=== PATIENT | female | born 1935 | race Caucasian/White ===

== ENCOUNTER 2017-01-18 13:18 | Inpatient (IN) | payer MEDICARE, OTHER ==
[~2017-01-18 13:18] MED LIST: ACIPHEX20 M1 PO; ADULT ASPIRIN81 MG PO; ALLOPURINOL100 M1 PO; AMLODIPINE BESYL5 MG PO; APRESOLINE25 MG/TAB PO; ASPIR 8181 MG PO; ASPIRIN EC81 MG PO; BABY ASPIRIN81 MG; BENADRYL25 M3 PO; BIOTIN2500 MC1 PO; BIOTIN300 MCG PO; BIOTIN5 M1 PO; BIOTIN500 MCG; BYSTOLIC10 M1 PO; BYSTOLIC20 MG PO; BYSTOLIC5 MG PO; CALCIUM CITRAT1 EA25 PO; CALCIUM CITRAT1 EAC7 PO; CATAPRES0.1 M1 PO; CITALOPRAM; CLONAZEPAM0.5 M1 PO; CLONAZEPAM0.5 M2 PO; CLONIDINE HCL0.2 MG PO; CO Q-10150 MG PO; COLACE100 MG PO; CRESTOR20 MG; CRESTOR20 MG PO; CRESTOR40 MG PO; DEMADEX20 MG; DETROL LA4 MG; DIOVAN320 MG; DIOVAN320 MG PO; ESTRACE42.5 G1 VG; ESTRADIOL0.5 MG; ESTRADIOL0.5 MG PO; FOLIC ACID0.4 M1 PO; FOLIC ACID0.4 MG PO; GABAPENTIN100 MG PO; Gabapentin; HYDRALAZINE HCL10 MG PO; HYDROCODON-ACE1 EA17 PO; IRON325 ( 65 PO; ISOSORBIDE; ISOSORBIDE MONO60 M1 PO; ISOSORBIDE MONO60 M3 PO; LASIX20 MG; LASIX40 MG PO; LASIX80 M1 PO; LASIX80 MG PO; LEXAPRO10 M2 PO; LEXAPRO10 MG PO; LINZESS145 MC1 PO; LIVALO1 M1 PO; LIVALO4 M1 PO; LOTEMAX5 GM OP; MYSOLINE250 MG; MYSOLINE50 MG; NEURONTIN100 M1 PO; NEXIUM; NEXIUM20 MG PO; NEXIUM40 MG; NEXIUM40 MG PO; NITROGLYCERIN; NITROGLYCERIN0.4 M2 SL; NITROGLYCERIN0.4 MG SL; NORCO 5-325 TA1 EACH PO; NORCO 5/325 TAB1 TAB PO; NYSTATIN15 G1 TP; Nucynta PO; ONDANSETRON ODT4 M1 PO; PLAVIX75 MG; PLAVIX75 MG PO; PRALUENT P75 MG/1 ML SC; PRIMIDONE250 M1 PO; PRIMIDONE250 MG PO; PROLIA60 MG/1 M1 SC; PROTONIX40 M2 PO; PROTONIX40 MG PO; PROZAC20 MG; PROZAC20 MG PO; PROZAC40 MG; QUININE SULFAT325 MG; RANEXA1000 M1 PO; RANEXA1000 MG PO; RANEXA500 MG PO; RESTASIS0.4 ML/EA OP; RESTASIS1 EAC1 BOTH EYES; SPIRONOLACTONE25 MG; SYNTHROID50 MC1 PO; TEKTURNA; TEKTURNA PO; TEKTURNA150 MG; TEKTURNA300 MG PO; TENEX1 MG PO; TOPROL XL50 MG; TRAMADOL HCL50 M2 PO; TYLENOL EXTRA500 M1 PO; TYLENOL325 M2 PO; VITAMIN D1000 UNI1 PO; VITAMIN D2 PO; VITAMIN D250000 UNI1 PO; VITAMIN D50000 UNIT PO; VOLTAREN100 G1 TP; XARELTO PO; ZETIA10 M1 PO; ZETIA10 MG; ZETIA10 MG PO
[2017-01-18] MEDS ORDERED: NEURONTIN300 M1 PO (14:22)
[2017-01-18] MEDS ORDERED: NORCO 5-325 TA1 EACH PO (14:23)
[2017-01-18] MEDS ORDERED: CLONAZEPAM0.5 M2 PO (14:23)
[2017-01-18] MEDS ORDERED: CATAPRES0.1 M1 PO ×2 (14:24→14:54)
[2017-01-18] MEDS ORDERED: RESTASIS0.4 ML/EA OP (14:25)
[2017-01-18] MEDS ORDERED: TYLENOL EXTRA500 M1 PO (14:25)
[2017-01-18] MEDS ORDERED: GLYCERIN1 EAC1 PR (14:26)
[2017-01-18] MEDS ORDERED: BYSTOLIC10 M1 PO (14:26)
[2017-01-18] MEDS ORDERED: FOLIC ACID1 M1 PO (14:27)
[2017-01-18] MEDS ORDERED: SPIRONOLACTONE25 M2 PO (14:27)
[2017-01-18] MEDS ORDERED: PANTOPRAZOLE SO40 M3 PO (14:30)
[2017-01-18] MEDS ORDERED: LIDODERM1 EACH TD (14:36)
[2017-01-18] MEDS ORDERED: POLYETHYLENE G255 G1 PO (14:37)
[2017-01-18] MEDS ORDERED: PROCRIT10000 UNIT SC (14:39)
[2017-01-18] MEDS ORDERED: NORVASC10 M2 PO (14:40)
[2017-01-18] MEDS ORDERED: BYSTOLIC20 M1 PO (14:41)
[2017-01-18] MEDS ORDERED: IPRATROPIU0.2 MG/1 M INH (14:51)
[2017-01-18] MEDS ORDERED: ALBUTEROL2.5 MG/0.1 INH (14:52)
[2017-01-18] MEDS ORDERED: PRALUENT P75 MG/1 ML SC (14:55)
[2017-01-18] MEDS ORDERED: CALCIUM500 M4 PO (14:56)
[2017-01-18] MEDS ORDERED: SENOKOT-S TABL1 EACH PO (14:59)
[2017-01-18 18:22] LABS: ABG CO2 ARTERIAL 20 mmol/L (21-27); ARTERIAL BLD GAS O2 SATURATION 97 % (95-98); ARTERIAL BLOOD GAS PCO2 31 mmHg (32-45); ARTERIAL PO2 82 mmHg (70-100); BICARBONATE 19 mmol/L (21-28); BLOOD GAS BASE EXCESS -5 mM/L (-/+3); PH 7.41 Units (7.35-7.45)
[2017-01-18 19:14] LABS: BASO % 0.3 % (0-2); EOS % 2.5 % (0-7); EOSINOPHIL ABSOLUTE COUNT 0.2 tho/cmm (0.0-0.7); HCT-HEMATOCRIT 28.7 % (34.0-49.0); HGB-HEMOGLOBIN 9.8 gm/dl (12.0-15.5); IMMATURE GRANULOCYTES ABSOLUTE 0.02 tho/cmm (0-0.03); IMMATURE GRANULOCYTES PERCENT 0.2 % (0-0.3); LYMPH % 10.1 % (20-45); LYMPH ABSOLUTE COUNT 0.9 tho/cmm (0.8-4.5); MCH (MEAN CORPUSCULAR HGB) 31.4 pg (28.0-32.0); MCHC MEAN CORPUSCULAR HGB CONC 34.1 % (32.0-36.0); MEAN PLATELET VOLUME 9.8 cmc (9.4-12.4); MONO % 8.9 % (0-12); MONOCYTE ABSOLUTE COUNT 0.8 tho/cmm (0.0-1.2); NEUTROPHIL ABSOLUTE COUNT 6.9 tho/cmm (1.6-8.0); NEUTROPHIL-AUTOMATED 6.9 tho/cmm (1.6-8.0); PLATELET COUNT 238 tho/cmm (150-450); RED BLOOD COUNT 3.12 mil/cmm (4.00-5.20); RED CELL DISTRIBUTION WIDTH 18.6 % (12.4-16.4); WHITE BLOOD COUNT 8.9 tho/cmm (4.0-10.0)
[2017-01-18 19:30] LABS: IRON 36 ug/dl (37-170); IRON BINDING CAPACITY 264 ug/dl (250-450)
[2017-01-18 19:32] LABS: ALB/GLOB RATIO 0.7 (0.8-2.0); ALBUMIN 3.2 g/dl (3.5-5.0); ALKALINE PHOSPHATASE 90 U/L (33-138); ALT/SGPT 63 U/L (12-78); ANION GAP 17 mmol/L (0-20); AST/SGOT 53 U/L (10-40); BILIRUBIN,TOTAL 0.7 mg/dl (0-1.5); BLOOD UREA NITROGEN 45 mg/dl (6-24); CALCIUM 9.1 mg/dl (8.5-10.5); CARBON DIOXIDE-VENOUS 20 mmol/L (22-32); CHLORIDE 94 mmol/l (96-110); CREATININE 1.79 mg/dl (0.50-1.10); GLUCOSE 108 mg/dL (70-110); MAGNESIUM 2.3 mg/dl (1.8-2.6); PHOSPHOROUS 4.1 mg/dl (2.5-4.9); POTASSIUM 4.9 mmol/L (3.7-5.1); SODIUM 126 mmol/L (135-145); eGFR VALUE FOR BLACK 30 mL/Min
[2017-01-19] LABS: URINE BILIRUBIN NEGATIVE (NEG); URINE BLOOD NEGATIVE (NEG); URINE GLUCOSE (UA) NEGATIVE (NEG); URINE KETONE NEGATIVE (NEG); URINE LEUKOCYTE ESTERASE NEGATIVE (NEG); URINE NITRITE NEGATIVE (NEG); URINE PROTEIN SMALL (NEG); URINE SPECIFIC GRAVITY 1.005 (1.003-1.030)
[2017-01-19 00:04] LABS: URINE APPEARANCE CLEAR; URINE COLOR PALE YELLOW
[2017-01-19 06:26] LABS: BASO % 0.4 % (0-2); EOS % 2.3 % (0-7); EOSINOPHIL ABSOLUTE COUNT 0.2 tho/cmm (0.0-0.7); HCT-HEMATOCRIT 27.5 % (34.0-49.0); HGB-HEMOGLOBIN 9.3 gm/dl (12.0-15.5); IMMATURE GRANULOCYTES ABSOLUTE 0.02 tho/cmm (0-0.03); IMMATURE GRANULOCYTES PERCENT 0.3 % (0-0.3); LYMPH % 11.7 % (20-45); LYMPH ABSOLUTE COUNT 0.9 tho/cmm (0.8-4.5); MCHC MEAN CORPUSCULAR HGB CONC 33.8 % (32.0-36.0); MCV (MEAN CELL VOLUME) 91.7 fl (82.0-96.0); MEAN PLATELET VOLUME 9.8 cmc (9.4-12.4); MONO % 13.5 % (0-12); MONOCYTE ABSOLUTE COUNT 1.1 tho/cmm (0.0-1.2); NEUTROPHIL ABSOLUTE COUNT 5.7 tho/cmm (1.6-8.0); NEUTROPHIL-AUTOMATED 5.7 tho/cmm (1.6-8.0); NEUTROPHILS % 71.8 % (40-80); PLATELET COUNT 241 tho/cmm (150-450); RED CELL DISTRIBUTION WIDTH 18.5 % (12.4-16.4)
[2017-01-19 06:41] LABS: ANION GAP 15 mmol/L (0-20); BLOOD UREA NITROGEN 40 mg/dl (6-24); CALCIUM 8.9 mg/dl (8.5-10.5); CARBON DIOXIDE-VENOUS 21 mmol/L (22-32); CHLORIDE 96 mmol/l (96-110); CREATININE 1.72 mg/dl (0.50-1.10); GLUCOSE 113 mg/dL (70-110); MAGNESIUM 2.3 mg/dl (1.8-2.6); PHOSPHOROUS 3.7 mg/dl (2.5-4.9); POTASSIUM 4.8 mmol/L (3.7-5.1); SODIUM 127 mmol/L (135-145); eGFR VALUE FOR BLACK 32 mL/Min
[2017-01-19 14:09] LABS: INR 1.2 INR (0.9-1.1); PROTHROMBIN TIME 14.6 SECONDS (9.0-13.6)
--- NOTE | 2017-01-19 14:48 | NUR ---
VN ROUNDING-TRIED ROUNDING ON PATIENT AND PHYSICIAN IN ROOM TALKING WITH PATIENT AND FAMILY AT BEDSIDE. CONTINUED WITH CHART REVIEW
[2017-01-19 15:21] LABS: BODY FLUID APPEARANCE BLOODY (CLEAR); BODY FLUID COLOR RED (COLORLESS); BODY FLUID RBC COUNT 1190000 cmm (0); BODY FLUID TYPE PLEURAL; BODY FLUID WBC COUNT 486 cmm
[2017-01-19 15:22] LABS: BODY FLUID VOLUME 2000 ml
[2017-01-19 16:03] LABS: BODY FLUID EOSINOPHILS 4 %; BODY FLUID LYMPHOCYTES 12 %; BODY FLUID MACROPHAGES 53 %; BODY FLUID NEUTROPHILS 31 %
[2017-01-20 04:50] LABS: BASO % 0.3 % (0-2); EOS % 2.5 % (0-7); EOSINOPHIL ABSOLUTE COUNT 0.2 tho/cmm (0.0-0.7); HGB-HEMOGLOBIN 8.8 gm/dl (12.0-15.5); IMMATURE GRANULOCYTES ABSOLUTE 0.02 tho/cmm (0-0.03); IMMATURE GRANULOCYTES PERCENT 0.3 % (0-0.3); LYMPH % 7.6 % (20-45); LYMPH ABSOLUTE COUNT 0.6 tho/cmm (0.8-4.5); MCH (MEAN CORPUSCULAR HGB) 30.7 pg (28.0-32.0); MCHC MEAN CORPUSCULAR HGB CONC 33.8 % (32.0-36.0); MCV (MEAN CELL VOLUME) 90.6 fl (82.0-96.0); MEAN PLATELET VOLUME 9.4 cmc (9.4-12.4); MONO % 7.7 % (0-12); MONOCYTE ABSOLUTE COUNT 0.6 tho/cmm (0.0-1.2); NEUTROPHIL ABSOLUTE COUNT 6.5 tho/cmm (1.6-8.0); NEUTROPHIL-AUTOMATED 6.5 tho/cmm (1.6-8.0); NEUTROPHILS % 81.6 % (40-80); PLATELET COUNT 231 tho/cmm (150-450); RED BLOOD COUNT 2.87 mil/cmm (4.00-5.20); RED CELL DISTRIBUTION WIDTH 18.4 % (12.4-16.4); WHITE BLOOD COUNT 7.9 tho/cmm (4.0-10.0)
[2017-01-20 05:04] LABS: ALB/GLOB RATIO 0.7 (0.8-2.0); ALBUMIN 2.6 g/dl (3.5-5.0); ALKALINE PHOSPHATASE 84 U/L (33-138); ALT/SGPT 50 U/L (12-78); ANION GAP 16 mmol/L (0-20); AST/SGOT 42 U/L (10-40); BILIRUBIN,TOTAL 0.6 mg/dl (0-1.5); BLOOD UREA NITROGEN 37 mg/dl (6-24); CALCIUM 7.8 mg/dl (8.5-10.5); CARBON DIOXIDE-VENOUS 21 mmol/L (22-32); CHLORIDE 96 mmol/l (96-110); CREATININE 1.56 mg/dl (0.50-1.10); GLUCOSE 114 mg/dL (70-110); PHOSPHOROUS 3.2 mg/dl (2.5-4.9); POTASSIUM 4.2 mmol/L (3.7-5.1); SODIUM 129 mmol/L (135-145); eGFR VALUE FOR BLACK 35 mL/Min
[2017-01-20 12:26] LABS: CREATINE PHOSPHOKINASE (CPK) 29 U/L (21-215)
[2017-01-20 17:57] LABS: CKMB 0.6 ng/ml (<3.6); CREATINE PHOSPHOKINASE (CPK) 21 U/L (21-215)
--- NOTE | 2017-01-20 20:59 | NUR ---
VN ROUNDING-DID NOT ROUND ON PATIENT DUE TO CONFUSION. CHART REVIEWED.
[2017-01-21 00:16] LABS: CKMB 0.7 ng/ml (<3.6); CREATINE PHOSPHOKINASE (CPK) 19 U/L (21-215)
[2017-01-21 04:37] LABS: MCV (MEAN CELL VOLUME) 91.4 fl (82.0-96.0); RED CELL DISTRIBUTION WIDTH 18.5 % (12.4-16.4)
[2017-01-21 04:45] LABS: HCT-HEMATOCRIT 23.4 % (34.0-49.0)
[2017-01-21 04:50] LABS: ANION GAP 14 mmol/L (0-20); BLOOD UREA NITROGEN 31 mg/dl (6-24); CALCIUM 7.5 mg/dl (8.5-10.5); CARBON DIOXIDE-VENOUS 22 mmol/L (22-32); CHLORIDE 97 mmol/l (96-110); CREATININE 1.53 mg/dl (0.50-1.10); GLUCOSE 118 mg/dL (70-110); POTASSIUM 3.8 mmol/L (3.7-5.1); SODIUM 129 mmol/L (135-145); eGFR VALUE FOR BLACK 36 mL/Min
--- NOTE | 2017-01-21 19:24 | NUR ---
VIRTUAL CARE NOTE: ASSESSMENT DEFERRED. PT. SLEEPING.
[2017-01-22 06:24] LABS: ANION GAP 14 mmol/L (0-20); BLOOD UREA NITROGEN 27 mg/dl (6-24); CALCIUM 7.9 mg/dl (8.5-10.5); CARBON DIOXIDE-VENOUS 22 mmol/L (22-32); CHLORIDE 99 mmol/l (96-110); CREATININE 1.47 mg/dl (0.50-1.10); GLUCOSE 116 mg/dL (70-110); POTASSIUM 3.9 mmol/L (3.7-5.1); SODIUM 131 mmol/L (135-145); eGFR VALUE FOR BLACK 38 mL/Min
--- NOTE | 2017-01-22 21:37 | NUR ---
Virtual care note: assessment deferred. pt. sleeping.
[2017-01-23 05:52] LABS: BASO % 0.3 % (0-2); EOS % 1.6 % (0-7); EOSINOPHIL ABSOLUTE COUNT 0.1 tho/cmm (0.0-0.7); HCT-HEMATOCRIT 24.5 % (34.0-49.0); HGB-HEMOGLOBIN 8.1 gm/dl (12.0-15.5); IMMATURE GRANULOCYTES ABSOLUTE 0.04 tho/cmm (0-0.03); IMMATURE GRANULOCYTES PERCENT 0.5 % (0-0.3); LYMPH % 8.1 % (20-45); LYMPH ABSOLUTE COUNT 0.6 tho/cmm (0.8-4.5); MCH (MEAN CORPUSCULAR HGB) 30.6 pg (28.0-32.0); MCHC MEAN CORPUSCULAR HGB CONC 33.1 % (32.0-36.0); MCV (MEAN CELL VOLUME) 92.5 fl (82.0-96.0); MEAN PLATELET VOLUME 9.3 cmc (9.4-12.4); MONO % 11.7 % (0-12); MONOCYTE ABSOLUTE COUNT 0.9 tho/cmm (0.0-1.2); NEUTROPHIL ABSOLUTE COUNT 6.2 tho/cmm (1.6-8.0); NEUTROPHIL-AUTOMATED 6.2 tho/cmm (1.6-8.0); NEUTROPHILS % 77.8 % (40-80); PLATELET COUNT 209 tho/cmm (150-450); RED BLOOD COUNT 2.65 mil/cmm (4.00-5.20); WHITE BLOOD COUNT 7.9 tho/cmm (4.0-10.0)
[2017-01-23 06:09] LABS: ALBUMIN 2.5 g/dl (3.5-5.0); ANION GAP 15 mmol/L (0-20); BLOOD UREA NITROGEN 27 mg/dl (6-24); CALCIUM 7.8 mg/dl (8.5-10.5); CARBON DIOXIDE-VENOUS 21 mmol/L (22-32); CHLORIDE 100 mmol/l (96-110); GLUCOSE 120 mg/dL (70-110); SODIUM 132 mmol/L (135-145); eGFR VALUE FOR BLACK 37 mL/Min
[2017-01-24 12:45] LABS: BASO % 0.2 % (0-2); EOS % 0.5 % (0-7); EOSINOPHIL ABSOLUTE COUNT 0.1 tho/cmm (0.0-0.7); HCT-HEMATOCRIT 25.6 % (34.0-49.0); HGB-HEMOGLOBIN 8.7 gm/dl (12.0-15.5); IMMATURE GRANULOCYTES ABSOLUTE 0.06 tho/cmm (0-0.03); IMMATURE GRANULOCYTES PERCENT 0.6 % (0-0.3); LYMPH ABSOLUTE COUNT 0.8 tho/cmm (0.8-4.5); MCH (MEAN CORPUSCULAR HGB) 31.6 pg (28.0-32.0); MCV (MEAN CELL VOLUME) 93.1 fl (82.0-96.0); MEAN PLATELET VOLUME 9.8 cmc (9.4-12.4); MONOCYTE ABSOLUTE COUNT 1.5 tho/cmm (0.0-1.2); NEUTROPHILS % 76.7 % (40-80); PLATELET COUNT 297 tho/cmm (150-450); RED BLOOD COUNT 2.75 mil/cmm (4.00-5.20); RED CELL DISTRIBUTION WIDTH 19.3 % (12.4-16.4); WHITE BLOOD COUNT 10.5 tho/cmm (4.0-10.0)
[2017-01-24 13:01] LABS: ANION GAP 15 mmol/L (0-20); BLOOD UREA NITROGEN 29 mg/dl (6-24); CALCIUM 7.8 mg/dl (8.5-10.5); CARBON DIOXIDE-VENOUS 20 mmol/L (22-32); CHLORIDE 100 mmol/l (96-110); CREATININE 1.61 mg/dl (0.50-1.10); GLUCOSE 110 mg/dL (70-110); POTASSIUM 4.2 mmol/L (3.7-5.1); SODIUM 131 mmol/L (135-145); eGFR VALUE FOR BLACK 34 mL/Min
--- NOTE | 2017-01-24 21:57 | NUR ---
VN ROUNDING NOTE-DEFERRED PATIENT SLEEPING.
[2017-01-25 05:18] LABS: HCT-HEMATOCRIT 27.4 % (34.0-49.0); HGB-HEMOGLOBIN 9.3 gm/dl (12.0-15.5); MCH (MEAN CORPUSCULAR HGB) 30.5 pg (28.0-32.0); MCHC MEAN CORPUSCULAR HGB CONC 33.9 % (32.0-36.0); MCV (MEAN CELL VOLUME) 89.8 fl (82.0-96.0); NEUTROPHIL-AUTOMATED 6.6 tho/cmm (1.6-8.0); PLATELET COUNT 225 tho/cmm (150-450); RED BLOOD COUNT 3.05 mil/cmm (4.00-5.20); RED CELL DISTRIBUTION WIDTH 19.5 % (12.4-16.4); WHITE BLOOD COUNT 8.7 tho/cmm (4.0-10.0)
[2017-01-25 05:19] LABS: BASO % 0.1 % (0-2); EOS % 1.1 % (0-7); EOSINOPHIL ABSOLUTE COUNT 0.1 tho/cmm (0.0-0.7); IMMATURE GRANULOCYTES ABSOLUTE 0.08 tho/cmm (0-0.03); IMMATURE GRANULOCYTES PERCENT 0.9 % (0-0.3); LYMPH ABSOLUTE COUNT 0.8 tho/cmm (0.8-4.5); MEAN PLATELET VOLUME 9.5 cmc (9.4-12.4); MONO % 12.9 % (0-12); MONOCYTE ABSOLUTE COUNT 1.1 tho/cmm (0.0-1.2); NEUTROPHIL ABSOLUTE COUNT 6.6 tho/cmm (1.6-8.0)
[2017-01-25 05:26] LABS: ALB/GLOB RATIO 0.6 (0.8-2.0); ALBUMIN 2.4 g/dl (3.5-5.0); ALKALINE PHOSPHATASE 101 U/L (33-138); ALT/SGPT 78 U/L (12-78); ANION GAP 13 mmol/L (0-20); AST/SGOT 93 U/L (10-40); BILIRUBIN,TOTAL 2.3 mg/dl (0-1.5); BLOOD UREA NITROGEN 33 mg/dl (6-24); CALCIUM 7.6 mg/dl (8.5-10.5); CARBON DIOXIDE-VENOUS 21 mmol/L (22-32); CHLORIDE 100 mmol/l (96-110); CREATININE 1.61 mg/dl (0.50-1.10); GLUCOSE 120 mg/dL (70-110); MAGNESIUM 2.1 mg/dl (1.8-2.6); PHOSPHOROUS 2.3 mg/dl (2.5-4.9); POTASSIUM 4.1 mmol/L (3.7-5.1); SODIUM 130 mmol/L (135-145); eGFR VALUE FOR BLACK 34 mL/Min
[2017-01-26 04:45] LABS: BASO % 0.1 % (0-2); EOS % 0.1 % (0-7); HCT-HEMATOCRIT 26.5 % (34.0-49.0); HGB-HEMOGLOBIN 8.9 gm/dl (12.0-15.5); IMMATURE GRANULOCYTES ABSOLUTE 0.04 tho/cmm (0-0.03); IMMATURE GRANULOCYTES PERCENT 0.4 % (0-0.3); LYMPH % 7.7 % (20-45); LYMPH ABSOLUTE COUNT 0.8 tho/cmm (0.8-4.5); MCH (MEAN CORPUSCULAR HGB) 30.3 pg (28.0-32.0); MCHC MEAN CORPUSCULAR HGB CONC 33.6 % (32.0-36.0); MCV (MEAN CELL VOLUME) 90.1 fl (82.0-96.0); MEAN PLATELET VOLUME 9.4 cmc (9.4-12.4); MONO % 9.3 % (0-12); MONOCYTE ABSOLUTE COUNT 0.9 tho/cmm (0.0-1.2); NEUTROPHIL ABSOLUTE COUNT 8.3 tho/cmm (1.6-8.0); NEUTROPHIL-AUTOMATED 8.3 tho/cmm (1.6-8.0); NEUTROPHILS % 82.4 % (40-80); PLATELET COUNT 240 tho/cmm (150-450); RED BLOOD COUNT 2.94 mil/cmm (4.00-5.20); RED CELL DISTRIBUTION WIDTH 20.5 % (12.4-16.4)
[2017-01-26 04:47] LABS: ANION GAP 15 mmol/L (0-20); BLOOD UREA NITROGEN 32 mg/dl (6-24); CALCIUM 6.9 mg/dl (8.5-10.5); CARBON DIOXIDE-VENOUS 17 mmol/L (22-32); CHLORIDE 104 mmol/l (96-110); CREATININE 1.59 mg/dl (0.50-1.10); GLUCOSE 103 mg/dL (70-110); POTASSIUM 4.4 mmol/L (3.7-5.1); SODIUM 132 mmol/L (135-145); eGFR VALUE FOR BLACK 35 mL/Min
--- NOTE | 2017-01-26 15:47 | NUR ---
VIRTUAL CARE NOTE: PT RESTING ON BED, C/O WHEEZING AND SOME ABDOMINAL PAIN. PT HAD TYLENYL TX RECENTLY AND DID NOT THINK IT HELPS. PRIMARY NURSE WAS NOTIFIED FOR REGARDING PAIN, MAY NEED TO TRY ULTRAM PRN. GENERALLY PT DOING OK, STATES TOO WEAK TO GET UP YET. DISCHARGE PLAN BACK TO [facility] A FEW DAYS. WILL CON'T TO MONITOR.
[2017-01-27 05:59] LABS: BASO % 0.3 % (0-2); EOS % 2.1 % (0-7); EOSINOPHIL ABSOLUTE COUNT 0.1 tho/cmm (0.0-0.7); HCT-HEMATOCRIT 24.5 % (34.0-49.0); HGB-HEMOGLOBIN 8.1 gm/dl (12.0-15.5); IMMATURE GRANULOCYTES ABSOLUTE 0.03 tho/cmm (0-0.03); IMMATURE GRANULOCYTES PERCENT 0.5 % (0-0.3); LYMPH % 9.4 % (20-45); LYMPH ABSOLUTE COUNT 0.6 tho/cmm (0.8-4.5); MCH (MEAN CORPUSCULAR HGB) 30.3 pg (28.0-32.0); MCHC MEAN CORPUSCULAR HGB CONC 33.1 % (32.0-36.0); MCV (MEAN CELL VOLUME) 91.8 fl (82.0-96.0); MEAN PLATELET VOLUME 9.8 cmc (9.4-12.4); MONO % 13.6 % (0-12); MONOCYTE ABSOLUTE COUNT 0.8 tho/cmm (0.0-1.2); NEUTROPHIL ABSOLUTE COUNT 4.6 tho/cmm (1.6-8.0); NEUTROPHIL-AUTOMATED 4.6 tho/cmm (1.6-8.0); NEUTROPHILS % 74.1 % (40-80); PLATELET COUNT 252 tho/cmm (150-450); RED BLOOD COUNT 2.67 mil/cmm (4.00-5.20); RED CELL DISTRIBUTION WIDTH 20.7 % (12.4-16.4); WHITE BLOOD COUNT 6.2 tho/cmm (4.0-10.0)
[2017-01-27 06:05] LABS: ANION GAP 17 mmol/L (0-20); BLOOD UREA NITROGEN 34 mg/dl (6-24); CARBON DIOXIDE-VENOUS 17 mmol/L (22-32); CHLORIDE 109 mmol/l (96-110); CREATININE 1.71 mg/dl (0.50-1.10); GLUCOSE 99 mg/dL (70-110); MAGNESIUM 1.9 mg/dl (1.8-2.6); POTASSIUM 3.9 mmol/L (3.7-5.1); SODIUM 139 mmol/L (135-145); eGFR VALUE FOR BLACK 32 mL/Min
[2017-01-28 05:05] LABS: BASO % 0.6 % (0-2); EOS % 3.1 % (0-7); EOSINOPHIL ABSOLUTE COUNT 0.2 tho/cmm (0.0-0.7); HCT-HEMATOCRIT 24.8 % (34.0-49.0); HGB-HEMOGLOBIN 8.2 gm/dl (12.0-15.5); IMMATURE GRANULOCYTES ABSOLUTE 0.05 tho/cmm (0-0.03); IMMATURE GRANULOCYTES PERCENT 0.9 % (0-0.3); LYMPH % 12.6 % (20-45); LYMPH ABSOLUTE COUNT 0.7 tho/cmm (0.8-4.5); MCH (MEAN CORPUSCULAR HGB) 30.4 pg (28.0-32.0); MCHC MEAN CORPUSCULAR HGB CONC 33.1 % (32.0-36.0); MCV (MEAN CELL VOLUME) 91.9 fl (82.0-96.0); MEAN PLATELET VOLUME 9.4 cmc (9.4-12.4); MONO % 11.1 % (0-12); MONOCYTE ABSOLUTE COUNT 0.6 tho/cmm (0.0-1.2); NEUTROPHIL ABSOLUTE COUNT 3.9 tho/cmm (1.6-8.0); NEUTROPHIL-AUTOMATED 3.9 tho/cmm (1.6-8.0); NEUTROPHILS % 71.7 % (40-80); PLATELET COUNT 256 tho/cmm (150-450); RED CELL DISTRIBUTION WIDTH 20.5 % (12.4-16.4); WHITE BLOOD COUNT 5.4 tho/cmm (4.0-10.0)
[2017-01-28 05:23] LABS: ALB/GLOB RATIO 0.6 (0.8-2.0); ALBUMIN 2.2 g/dl (3.5-5.0); ALKALINE PHOSPHATASE 107 U/L (33-138); ALT/SGPT 78 U/L (12-78); ANION GAP 16 mmol/L (0-20); AST/SGOT 82 U/L (10-40); BILIRUBIN,TOTAL 0.7 mg/dl (0-1.5); BLOOD UREA NITROGEN 34 mg/dl (6-24); CALCIUM 7.3 mg/dl (8.5-10.5); CARBON DIOXIDE-VENOUS 19 mmol/L (22-32); CHLORIDE 109 mmol/l (96-110); GLUCOSE 104 mg/dL (70-110); POTASSIUM 3.8 mmol/L (3.7-5.1); PREALBUMIN 16.1 mg/dl (20.0-40.0); SODIUM 140 mmol/L (135-145); eGFR VALUE FOR BLACK 30 mL/Min
--- NOTE | 2017-01-28 20:25 | NUR ---
VN/LEADER ROUNDING NOTE-PATIENT LAYING IN BED AND STATES SHE IS HAVING SOME PAIN IN HER ABD AND BACK AND JUST GOT SOME PAIN MEDICATION. THE NURSE WAS AT HER BEDSIDE. OTHERWISE PAIN IS STAYING CONTROLLED. PATIENT STATES THE CALL LIGHTS ARE BEING ANSWERED WELL AND THE STAFF HAS BEEN WONDERFUL. SHE PLANS TO GO TO [facility] WHEN SHE LEAVES HERE. SHE HAS NO OTHER QUESTIONS OR CONCERNS AT THIS TIME. CHART REVIEWED
[2017-01-29 05:50] LABS: BASO % 0.7 % (0-2); EOS % 3.7 % (0-7); EOSINOPHIL ABSOLUTE COUNT 0.2 tho/cmm (0.0-0.7); HCT-HEMATOCRIT 25.1 % (34.0-49.0); HGB-HEMOGLOBIN 8.3 gm/dl (12.0-15.5); IMMATURE GRANULOCYTES ABSOLUTE 0.06 tho/cmm (0-0.03); LYMPH % 10.2 % (20-45); LYMPH ABSOLUTE COUNT 0.6 tho/cmm (0.8-4.5); MCH (MEAN CORPUSCULAR HGB) 30.4 pg (28.0-32.0); MCHC MEAN CORPUSCULAR HGB CONC 33.1 % (32.0-36.0); MCV (MEAN CELL VOLUME) 91.9 fl (82.0-96.0); MEAN PLATELET VOLUME 9.3 cmc (9.4-12.4); MONOCYTE ABSOLUTE COUNT 0.7 tho/cmm (0.0-1.2); NEUTROPHIL ABSOLUTE COUNT 4.3 tho/cmm (1.6-8.0); NEUTROPHIL-AUTOMATED 4.3 tho/cmm (1.6-8.0); NEUTROPHILS % 73.4 % (40-80); PLATELET COUNT 254 tho/cmm (150-450); RED BLOOD COUNT 2.73 mil/cmm (4.00-5.20); RED CELL DISTRIBUTION WIDTH 20.7 % (12.4-16.4); WHITE BLOOD COUNT 5.9 tho/cmm (4.0-10.0)
[2017-01-29 06:02] LABS: ALBUMIN 2.2 g/dl (3.5-5.0); ANION GAP 15 mmol/L (0-20); BLOOD UREA NITROGEN 33 mg/dl (6-24); CALCIUM 7.6 mg/dl (8.5-10.5); CARBON DIOXIDE-VENOUS 19 mmol/L (22-32); CHLORIDE 109 mmol/l (96-110); CREATININE 1.72 mg/dl (0.50-1.10); GLUCOSE 114 mg/dL (70-110); POTASSIUM 3.8 mmol/L (3.7-5.1); SODIUM 139 mmol/L (135-145); eGFR VALUE FOR BLACK 32 mL/Min
[2017-01-30 06:14] LABS: BASO % 0.5 % (0-2); EOS % 3.9 % (0-7); EOSINOPHIL ABSOLUTE COUNT 0.2 tho/cmm (0.0-0.7); HCT-HEMATOCRIT 27.6 % (34.0-49.0); HGB-HEMOGLOBIN 8.9 gm/dl (12.0-15.5); IMMATURE GRANULOCYTES ABSOLUTE 0.07 tho/cmm (0-0.03); IMMATURE GRANULOCYTES PERCENT 1.2 % (0-0.3); LYMPH % 11.5 % (20-45); LYMPH ABSOLUTE COUNT 0.7 tho/cmm (0.8-4.5); MCH (MEAN CORPUSCULAR HGB) 29.9 pg (28.0-32.0); MCHC MEAN CORPUSCULAR HGB CONC 32.2 % (32.0-36.0); MCV (MEAN CELL VOLUME) 92.6 fl (82.0-96.0); MEAN PLATELET VOLUME 9.5 cmc (9.4-12.4); MONO % 11.5 % (0-12); MONOCYTE ABSOLUTE COUNT 0.7 tho/cmm (0.0-1.2); NEUTROPHILS % 71.4 % (40-80); PLATELET COUNT 283 tho/cmm (150-450); RED BLOOD COUNT 2.98 mil/cmm (4.00-5.20); RED CELL DISTRIBUTION WIDTH 20.8 % (12.4-16.4); WHITE BLOOD COUNT 5.6 tho/cmm (4.0-10.0)
[2017-01-30 06:25] LABS: ANION GAP 16 mmol/L (0-20); BLOOD UREA NITROGEN 30 mg/dl (6-24); CARBON DIOXIDE-VENOUS 20 mmol/L (22-32); CHLORIDE 111 mmol/l (96-110); GLUCOSE 112 mg/dL (70-110); POTASSIUM 3.6 mmol/L (3.7-5.1); SODIUM 143 mmol/L (135-145); eGFR VALUE FOR BLACK 32 mL/Min
[2017-01-30] MEDS ORDERED: IPRAT-ALBUT 0.5-3 ML INH (09:26)
[2017-01-30] MEDS ORDERED: ZETIA10 M1 PO (09:27)
[2017-01-30] MEDS ORDERED: TEKTURNA PO (09:28)
[2017-01-30] MEDS ORDERED: CLONIDINE HCL0.1 M2 PO (09:28)
[2017-01-30] MEDS ORDERED: ULTRAM50 M1 PO (09:29)
[2017-01-30] MEDS ORDERED: TYLENOL325 M2 PO (09:29)
[2017-01-30] MEDS ORDERED: REMERON15 M1 PO (09:30)
[2017-01-30] MEDS ORDERED: LASIX40 M1 PO (09:31)
[2017-01-30] MEDS ORDERED: DULCOLAX10 MG PR (09:32)
[2017-01-30] MEDS ORDERED: COLACE100 M1 PO (09:32)
[2017-01-30] MEDS ORDERED: MILK OF MAGNESIA PO (09:33)
[2017-01-30] MEDS ORDERED: MULTIVITAMIN PO (09:36)
[2017-04-04] MEDS ORDERED: SINEMET 25-1001 EAC1 PO (00:07)
[2017-04-04] MEDS ORDERED: NEURONTIN100 M1 PO (00:34)
[2017-04-04] MEDS ORDERED: KLONOPIN0.5 M1 PO (00:34)
[2017-04-07] MEDS ORDERED: TEKTURNA PO (09:48)
[2017-04-07] MEDS ORDERED: CATAPRES0.1 M1 PO (09:48)
[2017-04-08] MEDS ORDERED: ATIVAN2 MG/1 ML PO/SL (11:18)
[2017-04-08] MEDS ORDERED: ROXANOL PO/SL (11:19)
[2017-04-08] MEDS ORDERED: BYSTOLIC5 M1 PO (11:31)
== END 2017-01-30 14:00 | DRG 163 ==
LOC: CCU 13:18 → 5WD 01-19 03:07 → ORW 01-25 14:01 → PACU 01-25 15:18 → 5WD 01-25 17:00
PROVIDERS: Family Medicine; Internal Medicine Nephrology; Internal Medicine Pulmonary Disease; ADMIT Hospitalist
PROC: 05H633Z Insertion of Infusion Device into Left Subclavian Vein, Percutaneous Approach (ICD-10-PCS; 2017-01-18)
PROC: 5A09357 Assistance with Respiratory Ventilation, Less than 24 Consecutive Hours, Continuous Positive Airway Pressure (ICD-10-PCS; 2017-01-18)
PROC: 0W9B3ZZ Drainage of Left Pleural Cavity, Percutaneous Approach (ICD-10-PCS; 2017-01-19)
PROC: 0BDP4ZZ Extraction of Left Pleura, Percutaneous Endoscopic Approach (ICD-10-PCS; principal; 2017-01-25)
DX: J94.2 Hemothorax (principal); S22.5XXA Flail chest, initial encounter for closed fracture; I50.9 Heart failure, unspecified; I13.0 Hypertensive heart and chronic kidney disease with heart failure and stage 1 through stage 4 chronic kidney disease, or unspecified chronic kidney disease; E43 Unspecified severe protein-calorie malnutrition; J90 Pleural effusion, not elsewhere classified; N18.4 Chronic kidney disease, stage 4 (severe); E22.2 Syndrome of inappropriate secretion of antidiuretic hormone; I48.2 Chronic atrial fibrillation; D62 Acute posthemorrhagic anemia; R13.10 Dysphagia, unspecified; D63.1 Anemia in chronic kidney disease; I25.5 Ischemic cardiomyopathy; I25.10 Atherosclerotic heart disease of native coronary artery without angina pectoris; G47.33 Obstructive sleep apnea (adult) (pediatric); Z91.81 History of falling; K21.9 Gastro-esophageal reflux disease without esophagitis; Z66 Do not resuscitate; Z95.1 Presence of aortocoronary bypass graft; R60.0 Localized edema; E03.9 Hypothyroidism, unspecified; F41.9 Anxiety disorder, unspecified; Z79.82 Long term (current) use of aspirin; Z88.8 Allergy status to other drugs, medicaments and biological substances; Z91.011 Allergy to milk products; R27.0 Ataxia, unspecified; K58.1 Irritable bowel syndrome with constipation; F32.9 Major depressive disorder, single episode, unspecified; E78.5 Hyperlipidemia, unspecified; R41.0 Disorientation, unspecified; L53.8 Other specified erythematous conditions; Z68.26 Body mass index [BMI] 26.0-26.9, adult
CPT/HCPCS: C1751; G8978-GP-CK; G8979-GP-CK; J0690; J0885; J1756; J1940; J2405; J2997; J3010; J7030; J7040; P9016

== ENCOUNTER 2017-02-26 21:20 | Inpatient (IN) | payer MEDICARE, OTHER ==
[~2017-02-26 21:20] MED LIST changes: +ALBUTEROL2.5 MG/0.1 INH; +BYSTOLIC20 M1 PO; +CALCIUM500 M4 PO; +CLONIDINE HCL0.1 M2 PO; +COLACE100 M1 PO; +DULCOLAX10 MG PR; +FOLIC ACID1 M1 PO; +GLYCERIN1 EAC1 PR; +IPRAT-ALBUT 0.5-3 ML INH; +IPRATROPIU0.2 MG/1 M INH; +LASIX40 M1 PO; +LIDODERM1 EACH TD; +MILK OF MAGNESIA PO; +MULTIVITAMIN PO; +NEURONTIN300 M1 PO; +NORVASC10 M2 PO; +PANTOPRAZOLE SO40 M3 PO; +POLYETHYLENE G255 G1 PO; +PROCRIT10000 UNIT SC; +REMERON15 M1 PO; +SENOKOT-S TABL1 EACH PO; +SPIRONOLACTONE25 M2 PO; +ULTRAM50 M1 PO
[2017-02-26 21:51] LABS: BASO % 0.3 % (0-2); EOS % 1.5 % (0-7); EOSINOPHIL ABSOLUTE COUNT 0.2 tho/cmm (0.0-0.7); HGB-HEMOGLOBIN 10.8 gm/dl (12.0-15.5); IMMATURE GRANULOCYTES ABSOLUTE 0.06 tho/cmm (0-0.03); IMMATURE GRANULOCYTES PERCENT 0.5 % (0-0.3); LYMPH % 9.5 % (20-45); LYMPH ABSOLUTE COUNT 1.1 tho/cmm (0.8-4.5); MCH (MEAN CORPUSCULAR HGB) 32.4 pg (28.0-32.0); MCHC MEAN CORPUSCULAR HGB CONC 34.8 % (32.0-36.0); MCV (MEAN CELL VOLUME) 93.1 fl (82.0-96.0); MEAN PLATELET VOLUME 9.5 cmc (9.4-12.4); MONO % 8.5 % (0-12); NEUTROPHIL ABSOLUTE COUNT 9.3 tho/cmm (1.6-8.0); NEUTROPHIL-AUTOMATED 9.3 tho/cmm (1.6-8.0); NEUTROPHILS % 79.7 % (40-80); PLATELET COUNT 172 tho/cmm (150-450); RED BLOOD COUNT 3.33 mil/cmm (4.00-5.20); RED CELL DISTRIBUTION WIDTH 19.1 % (12.4-16.4); WHITE BLOOD COUNT 11.7 tho/cmm (4.0-10.0)
[2017-02-26 21:55] LABS: INR 1.1 INR (0.9-1.1); PROTHROMBIN TIME 12.6 SECONDS (9.0-13.6)
[2017-02-26 22:22] LABS: URINE BILIRUBIN NEGATIVE (NEG); URINE BLOOD NEGATIVE (NEG); URINE GLUCOSE (UA) SMALL (NEG); URINE KETONE NEGATIVE (NEG); URINE LEUKOCYTE ESTERASE POSITIVE (NEG); URINE NITRITE NEGATIVE (NEG); URINE PROTEIN LARGE (NEG)
[2017-02-26 22:23] LABS: URINE APPEARANCE SLIGHTLY CLOUDY; URINE COLOR YELLOW
[2017-02-26] MEDS ORDERED: PRALUENT P75 MG/1 ML IM (22:23)
[2017-02-26] MEDS ORDERED: [UNRECOGNIZED DRUG - CODE] SC (22:23)
[2017-02-26] MEDS ORDERED: PREMARIN30 GM OTHER (22:24)
[2017-02-26] MEDS ORDERED: ASPIRIN EC81 MG PO (22:25)
[2017-02-26] MEDS ORDERED: ZYLOPRIM100 M1 PO (22:25)
[2017-02-26] MEDS ORDERED: BIOTIN5000 MCG PO (22:25)
[2017-02-26] MEDS ORDERED: COMBIVENT RESPIM4 G1 INH (22:25)
[2017-02-26 22:26] LABS: ALKALINE PHOSPHATASE 74 U/L (33-138); ALT/SGPT 19 U/L (12-78); BILIRUBIN,TOTAL 0.7 mg/dl (0-1.5); BLOOD UREA NITROGEN 18 mg/dl (6-24); CALCIUM 9.1 mg/dl (8.5-10.5); CARBON DIOXIDE-VENOUS 19 mmol/L (22-32); CHLORIDE 91 mmol/l (96-110); CREATININE 1.43 mg/dl (0.50-1.10); GLUCOSE 141 mg/dL (70-110); SODIUM 123 mmol/L (135-145); eGFR VALUE FOR BLACK 39 mL/Min
[2017-02-26 22:27] LABS: ALB/GLOB RATIO 1.1 (0.8-2.0); ALBUMIN 3.7 g/dl (3.5-5.0); ANION GAP 18 mmol/L (0-20); AST/SGOT 25 U/L (10-40); POTASSIUM 4.6 mmol/L (3.7-5.1)
[2017-02-26] MEDS ORDERED: BYSTOLIC5 M1 PO ×3 (22:27→22:28)
[2017-02-26] MEDS ORDERED: CERTAVITE-ANTI1 EACH PO (22:28)
[2017-02-26] MEDS ORDERED: KLONOPIN0.5 M1 PO (22:28)
[2017-02-26] MEDS ORDERED: COLACE100 M1 PO (22:28)
[2017-02-26] MEDS ORDERED: ISOSORBIDE MONO30 M4 PO (22:29)
[2017-02-26] MEDS ORDERED: ZETIA10 M1 PO (22:29)
[2017-02-26] MEDS ORDERED: SYNTHROID50 MC1 PO (22:29)
[2017-02-26] MEDS ORDERED: NEURONTIN300 M1 PO (22:29)
[2017-02-26] MEDS ORDERED: LASIX20 M1 PO (22:29)
[2017-02-26] MEDS ORDERED: FOLIC ACID1 M1 PO (22:29)
[2017-02-26 22:30] LABS: URINE AMORPHOUS 2+; URINE BACTERIA 1+
[2017-02-26] MEDS ORDERED: RANEXA1000 M1 PO (22:30)
[2017-02-26] MEDS ORDERED: MIRALAX17 G2 PO (22:30)
[2017-02-26] MEDS ORDERED: PROTONIX40 M2 PO (22:30)
[2017-02-26] MEDS ORDERED: LIDOCAINE1 EACH TOP (22:30)
[2017-02-26 22:31] LABS: URINE EPITHELIAL CELLS 0 /[HPF] (0-10); URINE RBC 0 /[HPF] (0-5)
[2017-02-26] MEDS ORDERED: SODIUM BICARBO650 M1 PO (22:31)
[2017-02-26] MEDS ORDERED: RESTASIS0.4 ML/EA OP (22:31)
[2017-02-26] MEDS ORDERED: VITAMIN D31000 UNI3 PO (22:32)
[2017-02-26] MEDS ORDERED: TYLENOL325 M2 PO (22:32)
[2017-02-26] MEDS ORDERED: TEKTURNA PO (22:32)
[2017-02-26] MEDS ORDERED: TIZANIDINE HCL2 M3 PO (22:32)
[2017-02-26] MEDS ORDERED: DULCOLAX10 MG PR (22:33)
[2017-02-26] MEDS ORDERED: CALCIUM CARBON500 M2 PO (22:33)
[2017-02-26] MEDS ORDERED: CATAPRES0.1 M1 PO (22:34)
[2017-02-26] MEDS ORDERED: ENEMEEZ PLUS MIN5 ML PR (22:35)
[2017-02-26] MEDS ORDERED: DEEP SEA45 M1 (22:35)
[2017-02-26] MEDS ORDERED: GLYCERIN1 EAC1 PR (22:35)
[2017-02-26] MEDS ORDERED: LINZESS290 MC1 PO (22:36)
[2017-02-26] MEDS ORDERED: NITROLINGUAL12 G1 SL (22:36)
[2017-02-26] MEDS ORDERED: MILK OF MAGNESIA PO (22:36)
[2017-02-26] MEDS ORDERED: ULTRAM50 M1 PO (22:37)
[2017-02-26] MEDS ORDERED: ACID CONTROL150 M2 PO (22:37)
[2017-02-26] MEDS ORDERED: ZOFRAN4 M2 PO (22:37)
[2017-02-26] MEDS ORDERED: MYOFLEX60 G1 TP (22:38)
[2017-02-27 04:04] LABS: BASO % 0.1 % (0-2); EOS % 0.5 % (0-7); EOSINOPHIL ABSOLUTE COUNT 0.1 tho/cmm (0.0-0.7); HCT-HEMATOCRIT 32.2 % (34.0-49.0); HGB-HEMOGLOBIN 11.1 gm/dl (12.0-15.5); IMMATURE GRANULOCYTES ABSOLUTE 0.04 tho/cmm (0-0.03); IMMATURE GRANULOCYTES PERCENT 0.3 % (0-0.3); LYMPH % 10.9 % (20-45); LYMPH ABSOLUTE COUNT 1.3 tho/cmm (0.8-4.5); MCHC MEAN CORPUSCULAR HGB CONC 34.5 % (32.0-36.0); MCV (MEAN CELL VOLUME) 92.8 fl (82.0-96.0); MEAN PLATELET VOLUME 9.3 cmc (9.4-12.4); MONO % 9.7 % (0-12); MONOCYTE ABSOLUTE COUNT 1.1 tho/cmm (0.0-1.2); NEUTROPHILS % 78.5 % (40-80); PLATELET COUNT 157 tho/cmm (150-450); RED BLOOD COUNT 3.47 mil/cmm (4.00-5.20); WHITE BLOOD COUNT 11.4 tho/cmm (4.0-10.0)
[2017-02-27 04:24] LABS: ALBUMIN 3.7 g/dl (3.5-5.0); ALKALINE PHOSPHATASE 68 U/L (33-138); ALT/SGPT 18 U/L (12-78); ANION GAP 16 mmol/L (0-20); AST/SGOT 19 U/L (10-40); BILIRUBIN,TOTAL 0.7 mg/dl (0-1.5); BLOOD UREA NITROGEN 18 mg/dl (6-24); CALCIUM 9.1 mg/dl (8.5-10.5); CARBON DIOXIDE-VENOUS 22 mmol/L (22-32); CHLORIDE 89 mmol/l (96-110); CREATININE 1.47 mg/dl (0.50-1.10); GLUCOSE 134 mg/dL (70-110); POTASSIUM 3.9 mmol/L (3.7-5.1); SODIUM 123 mmol/L (135-145); eGFR VALUE FOR BLACK 38 mL/Min
[2017-02-27 14:33] LABS: TSH-THYROID STIMULATING HORM. 4.96 uIU/ml (0.40-3.80)
[2017-02-28 05:57] LABS: BASO % 0.3 % (0-2); EOS % 3.4 % (0-7); EOSINOPHIL ABSOLUTE COUNT 0.2 tho/cmm (0.0-0.7); HCT-HEMATOCRIT 26.4 % (34.0-49.0); IMMATURE GRANULOCYTES ABSOLUTE 0.02 tho/cmm (0-0.03); IMMATURE GRANULOCYTES PERCENT 0.3 % (0-0.3); LYMPH % 17.8 % (20-45); LYMPH ABSOLUTE COUNT 1.1 tho/cmm (0.8-4.5); MCH (MEAN CORPUSCULAR HGB) 31.7 pg (28.0-32.0); MCHC MEAN CORPUSCULAR HGB CONC 34.1 % (32.0-36.0); MEAN PLATELET VOLUME 9.7 cmc (9.4-12.4); MONO % 13.9 % (0-12); MONOCYTE ABSOLUTE COUNT 0.9 tho/cmm (0.0-1.2); NEUTROPHILS % 64.3 % (40-80); PLATELET COUNT 130 tho/cmm (150-450); RED BLOOD COUNT 2.84 mil/cmm (4.00-5.20); RED CELL DISTRIBUTION WIDTH 19.2 % (12.4-16.4); WHITE BLOOD COUNT 6.2 tho/cmm (4.0-10.0)
[2017-02-28 06:00] LABS: ANION GAP 16 mmol/L (0-20); BLOOD UREA NITROGEN 21 mg/dl (6-24); CALCIUM 8.2 mg/dl (8.5-10.5); CARBON DIOXIDE-VENOUS 24 mmol/L (22-32); CHLORIDE 91 mmol/l (96-110); CREATININE 1.75 mg/dl (0.50-1.10); GLUCOSE 94 mg/dL (70-110); POTASSIUM 4.2 mmol/L (3.7-5.1); SODIUM 127 mmol/L (135-145); eGFR VALUE FOR BLACK 31 mL/Min
[2017-02-28 08:02] LABS: URINE PRT/CR RATIO 0.49 Ratio (0.0-0.20); URINE TOTAL PROTEIN-RANDOM 38.4 mg/dl (<11.8)
[2017-03-01 05:01] LABS: ANION GAP 16 mmol/L (0-20); BLOOD UREA NITROGEN 26 mg/dl (6-24); CALCIUM 8.1 mg/dl (8.5-10.5); CARBON DIOXIDE-VENOUS 23 mmol/L (22-32); CHLORIDE 92 mmol/l (96-110); CREATININE 1.97 mg/dl (0.50-1.10); FERRITIN 208 ng/ml (8-250); GLUCOSE 105 mg/dL (70-110); POTASSIUM 3.7 mmol/L (3.7-5.1); SODIUM 127 mmol/L (135-145); eGFR VALUE FOR BLACK 27 mL/Min
[2017-03-01 05:29] LABS: IRON 28 ug/dl (37-170); IRON BINDING CAPACITY 207 ug/dl (250-450)
[2017-03-02 04:39] LABS: BASO % 0.5 % (0-2); EOS % 5.3 % (0-7); EOSINOPHIL ABSOLUTE COUNT 0.3 tho/cmm (0.0-0.7); HCT-HEMATOCRIT 26.9 % (34.0-49.0); HGB-HEMOGLOBIN 9.2 gm/dl (12.0-15.5); IMMATURE GRANULOCYTES ABSOLUTE 0.02 tho/cmm (0-0.03); IMMATURE GRANULOCYTES PERCENT 0.3 % (0-0.3); LYMPH % 16.3 % (20-45); MCH (MEAN CORPUSCULAR HGB) 31.9 pg (28.0-32.0); MCHC MEAN CORPUSCULAR HGB CONC 34.2 % (32.0-36.0); MCV (MEAN CELL VOLUME) 93.4 fl (82.0-96.0); MEAN PLATELET VOLUME 9.5 cmc (9.4-12.4); MONO % 11.7 % (0-12); MONOCYTE ABSOLUTE COUNT 0.7 tho/cmm (0.0-1.2); NEUTROPHIL ABSOLUTE COUNT 3.8 tho/cmm (1.6-8.0); NEUTROPHIL-AUTOMATED 3.8 tho/cmm (1.6-8.0); NEUTROPHILS % 65.9 % (40-80); PLATELET COUNT 134 tho/cmm (150-450); RED BLOOD COUNT 2.88 mil/cmm (4.00-5.20); RED CELL DISTRIBUTION WIDTH 19.3 % (12.4-16.4); WHITE BLOOD COUNT 5.8 tho/cmm (4.0-10.0)
[2017-03-02 04:43] LABS: ANION GAP 15 mmol/L (0-20); BLOOD UREA NITROGEN 26 mg/dl (6-24); CALCIUM 7.9 mg/dl (8.5-10.5); CARBON DIOXIDE-VENOUS 24 mmol/L (22-32); CHLORIDE 95 mmol/l (96-110); CREATININE 2.04 mg/dl (0.50-1.10); GLUCOSE 106 mg/dL (70-110); SODIUM 130 mmol/L (135-145); eGFR VALUE FOR BLACK 25 mL/Min
[2017-03-02 04:46] LABS: POTASSIUM 3.7 mmol/L (3.7-5.1)
[2017-03-02] MEDS ORDERED: TEKTURNA PO (17:26)
[2017-03-04 08:43] LABS: BODY FLUID TYPE THORACENTESIS
[2017-04-04] MEDS ORDERED: SINEMET 25-1001 EAC1 PO (00:07)
[2017-04-04] MEDS ORDERED: KLONOPIN0.5 M1 PO (00:34)
[2017-04-04] MEDS ORDERED: NEURONTIN100 M1 PO (00:34)
[2017-04-07] MEDS ORDERED: TEKTURNA PO (09:48)
[2017-04-07] MEDS ORDERED: CATAPRES0.1 M1 PO (09:48)
[2017-04-08] MEDS ORDERED: ATIVAN2 MG/1 ML PO/SL (11:18)
[2017-04-08] MEDS ORDERED: ROXANOL PO/SL (11:19)
[2017-04-08] MEDS ORDERED: BYSTOLIC5 M1 PO (11:31)
== END 2017-03-02 19:40 | disposition home health service (06) | DRG 291 ==
LOC: EDMED 21:20 → EMR2 23:33 → CCU 02-27 00:17 → 5WE 02-27 14:45
PROVIDERS: Emergency Medicine; Family Medicine; Internal Medicine Critical Care Medicine; Internal Medicine Nephrology; ADMIT Hospitalist
PROC: 05HC33Z Insertion of Infusion Device into Left Basilic Vein, Percutaneous Approach (ICD-10-PCS; principal; 2017-03-01)
DX: I13.0 Hypertensive heart and chronic kidney disease with heart failure and stage 1 through stage 4 chronic kidney disease, or unspecified chronic kidney disease (principal); I50.31 Acute diastolic (congestive) heart failure; J96.21 Acute and chronic respiratory failure with hypoxia; J18.9 Pneumonia, unspecified organism; N18.4 Chronic kidney disease, stage 4 (severe); E87.2 Acidosis; I27.2 Other secondary pulmonary hypertension; E22.2 Syndrome of inappropriate secretion of antidiuretic hormone; I48.0 Paroxysmal atrial fibrillation; D63.1 Anemia in chronic kidney disease; E87.70 Fluid overload, unspecified; I25.5 Ischemic cardiomyopathy; D64.9 Anemia, unspecified; Z66 Do not resuscitate; I44.7 Left bundle-branch block, unspecified; F41.9 Anxiety disorder, unspecified; G47.33 Obstructive sleep apnea (adult) (pediatric); K21.9 Gastro-esophageal reflux disease without esophagitis; K58.9 Irritable bowel syndrome, unspecified; E78.5 Hyperlipidemia, unspecified; E03.9 Hypothyroidism, unspecified; Z51.5 Encounter for palliative care; Z88.8 Allergy status to other drugs, medicaments and biological substances; Z91.011 Allergy to milk products; Z95.1 Presence of aortocoronary bypass graft
CPT/HCPCS: C1751; J0360; J0696; J0885; J1756; J1940; J2270; J2405; J3370; P9612

== ENCOUNTER 2017-03-05 12:09 | Observation (INO) | payer MEDICARE, OTHER ==
[~2017-03-05 12:09] MED LIST changes: +ACID CONTROL150 M2 PO; +BIOTIN5000 MCG PO; +BYSTOLIC5 M1 PO; +CALCIUM CARBON500 M2 PO; +CERTAVITE-ANTI1 EACH PO; +COMBIVENT RESPIM4 G1 INH; +DEEP SEA45 M1; +ENEMEEZ PLUS MIN5 ML PR; +ISOSORBIDE MONO30 M4 PO; +KLONOPIN0.5 M1 PO; +LASIX20 M1 PO; +LIDOCAINE1 EACH TOP; +LINZESS290 MC1 PO; +MIRALAX17 G2 PO; +MYOFLEX60 G1 TP; +NITROLINGUAL12 G1 SL; +PRALUENT P75 MG/1 ML IM; +PREMARIN30 GM OTHER; +SODIUM BICARBO650 M1 PO; +TIZANIDINE HCL2 M3 PO; +VITAMIN D31000 UNI3 PO; +ZOFRAN4 M2 PO; +ZYLOPRIM100 M1 PO; +[UNRECOGNIZED DRUG - CODE] SC
[2017-03-05 13:20] LABS: BASO % 0.4 % (0-2); EOS % 0.8 % (0-7); EOSINOPHIL ABSOLUTE COUNT 0.1 tho/cmm (0.0-0.7); HCT-HEMATOCRIT 28.8 % (34.0-49.0); HGB-HEMOGLOBIN 9.8 gm/dl (12.0-15.5); IMMATURE GRANULOCYTES ABSOLUTE 0.03 tho/cmm (0-0.03); IMMATURE GRANULOCYTES PERCENT 0.4 % (0-0.3); LYMPH % 7.5 % (20-45); LYMPH ABSOLUTE COUNT 0.6 tho/cmm (0.8-4.5); MCH (MEAN CORPUSCULAR HGB) 32.2 pg (28.0-32.0); MCV (MEAN CELL VOLUME) 94.7 fl (82.0-96.0); MEAN PLATELET VOLUME 9.5 cmc (9.4-12.4); MONO % 5.2 % (0-12); MONOCYTE ABSOLUTE COUNT 0.4 tho/cmm (0.0-1.2); NEUTROPHIL ABSOLUTE COUNT 6.4 tho/cmm (1.6-8.0); NEUTROPHIL-AUTOMATED 6.4 tho/cmm (1.6-8.0); NEUTROPHILS % 85.7 % (40-80); PLATELET COUNT 134 tho/cmm (150-450); RED BLOOD COUNT 3.04 mil/cmm (4.00-5.20); RED CELL DISTRIBUTION WIDTH 18.3 % (12.4-16.4); WHITE BLOOD COUNT 7.5 tho/cmm (4.0-10.0)
[2017-03-05 13:29] LABS: URINE APPEARANCE CLEAR; URINE BILIRUBIN NEGATIVE (NEG); URINE BLOOD NEGATIVE (NEG); URINE COLOR YELLOW; URINE GLUCOSE (UA) NEGATIVE (NEG); URINE KETONE MODERATE (NEG); URINE LEUKOCYTE ESTERASE POSITIVE (NEG); URINE NITRITE NEGATIVE (NEG); URINE PROTEIN MODERATE (NEG); URINE SPECIFIC GRAVITY 1.015 (1.003-1.030)
[2017-03-05 13:41] LABS: ALBUMIN 3.4 g/dl (3.5-5.0); ALKALINE PHOSPHATASE 52 U/L (33-138); ALT/SGPT 20 U/L (12-78); ANION GAP 18 mmol/L (0-20); AST/SGOT 26 U/L (10-40); BILIRUBIN,TOTAL 0.7 mg/dl (0-1.5); BLOOD UREA NITROGEN 22 mg/dl (6-24); CALCIUM 8.9 mg/dl (8.5-10.5); CARBON DIOXIDE-VENOUS 23 mmol/L (22-32); CHLORIDE 94 mmol/l (96-110); GLUCOSE 136 mg/dL (70-110); LIPASE 187 U/L (73-393); POTASSIUM 3.6 mmol/L (3.7-5.1); SODIUM 131 mmol/L (135-145); eGFR VALUE FOR BLACK 34 mL/Min
[2017-03-05 13:56] LABS: URINE AMORPHOUS 1+; URINE RBC 0-1 /[HPF] (0-5)
[2017-03-06 05:51] LABS: ANION GAP 15 mmol/L (0-20); BLOOD UREA NITROGEN 22 mg/dl (6-24); CALCIUM 7.7 mg/dl (8.5-10.5); CARBON DIOXIDE-VENOUS 21 mmol/L (22-32); CHLORIDE 100 mmol/l (96-110); CREATININE 1.47 mg/dl (0.50-1.10); GLUCOSE 91 mg/dL (70-110); POTASSIUM 3.5 mmol/L (3.7-5.1); SODIUM 132 mmol/L (135-145); eGFR VALUE FOR BLACK 38 mL/Min
[2017-03-06 06:26] LABS: BASO % 0.7 % (0-2); EOS % 1.9 % (0-7); EOSINOPHIL ABSOLUTE COUNT 0.1 tho/cmm (0.0-0.7); HCT-HEMATOCRIT 25.3 % (34.0-49.0); HGB-HEMOGLOBIN 8.7 gm/dl (12.0-15.5); IMMATURE GRANULOCYTES ABSOLUTE 0.03 tho/cmm (0-0.03); IMMATURE GRANULOCYTES PERCENT 0.5 % (0-0.3); LYMPH % 11.4 % (20-45); LYMPH ABSOLUTE COUNT 0.7 tho/cmm (0.8-4.5); MCH (MEAN CORPUSCULAR HGB) 32.7 pg (28.0-32.0); MCHC MEAN CORPUSCULAR HGB CONC 34.4 % (32.0-36.0); MCV (MEAN CELL VOLUME) 95.1 fl (82.0-96.0); MEAN PLATELET VOLUME 10.3 cmc (9.4-12.4); MONO % 12.4 % (0-12); MONOCYTE ABSOLUTE COUNT 0.7 tho/cmm (0.0-1.2); NEUTROPHIL ABSOLUTE COUNT 4.2 tho/cmm (1.6-8.0); NEUTROPHIL-AUTOMATED 4.2 tho/cmm (1.6-8.0); NEUTROPHILS % 73.1 % (40-80); PLATELET COUNT 134 tho/cmm (150-450); RED BLOOD COUNT 2.66 mil/cmm (4.00-5.20); RED CELL DISTRIBUTION WIDTH 18.5 % (12.4-16.4); WHITE BLOOD COUNT 5.8 tho/cmm (4.0-10.0)
[2017-03-06] MEDS ORDERED: PHENERGAN12.5 M2 PR (13:45)
[2017-04-04] MEDS ORDERED: SINEMET 25-1001 EAC1 PO (00:07)
[2017-04-04] MEDS ORDERED: KLONOPIN0.5 M1 PO (00:34)
[2017-04-04] MEDS ORDERED: NEURONTIN100 M1 PO (00:34)
[2017-04-07] MEDS ORDERED: TEKTURNA PO (09:48)
[2017-04-07] MEDS ORDERED: CATAPRES0.1 M1 PO (09:48)
[2017-04-08] MEDS ORDERED: ATIVAN2 MG/1 ML PO/SL (11:18)
[2017-04-08] MEDS ORDERED: ROXANOL PO/SL (11:19)
[2017-04-08] MEDS ORDERED: BYSTOLIC5 M1 PO (11:31)
== END 2017-03-06 14:15 ==
LOC: EDMED 12:09 → EMR2 14:52 → CAR1 15:42
PROVIDERS: Emergency Medicine; Internal Medicine; ADMIT Hospitalist
DX: K52.9 Noninfective gastroenteritis and colitis, unspecified (principal); R07.89 Other chest pain; E87.1 Hypo-osmolality and hyponatremia; I13.0 Hypertensive heart and chronic kidney disease with heart failure and stage 1 through stage 4 chronic kidney disease, or unspecified chronic kidney disease; N18.3 Chronic kidney disease, stage 3 (moderate); I50.31 Acute diastolic (congestive) heart failure; D63.1 Anemia in chronic kidney disease; I25.5 Ischemic cardiomyopathy; I48.0 Paroxysmal atrial fibrillation; K21.9 Gastro-esophageal reflux disease without esophagitis; E03.9 Hypothyroidism, unspecified; Z79.82 Long term (current) use of aspirin; Z79.899 Other long term (current) drug therapy; Z88.5 Allergy status to narcotic agent; Z88.1 Allergy status to other antibiotic agents; Z91.048 Other nonmedicinal substance allergy status; Z87.01 Personal history of pneumonia (recurrent); Z90.49 Acquired absence of other specified parts of digestive tract; Z90.89 Acquired absence of other organs; Z90.721 Acquired absence of ovaries, unilateral; Z95.1 Presence of aortocoronary bypass graft; Z98.49 Cataract extraction status, unspecified eye; Z98.890 Other specified postprocedural states
CPT/HCPCS: G0378; G8978-GP-CJ; G8979-GP-CI; G8980-GP-CJ; G8987-GO-CJ; G8988-GO-CI; G8989-GO-CJ; J2405; J7030; P9612

== ENCOUNTER 2017-03-11 17:42 | Emergency (ER) | payer MEDICARE, OTHER ==
[~2017-03-11 17:42] MED LIST changes: +PHENERGAN12.5 M2 PR
[2017-03-11 18:36] LABS: BASO % 0.4 % (0-2); EOS % 3.1 % (0-7); EOSINOPHIL ABSOLUTE COUNT 0.2 tho/cmm (0.0-0.7); HCT-HEMATOCRIT 30.2 % (34.0-49.0); HGB-HEMOGLOBIN 10.4 gm/dl (12.0-15.5); IMMATURE GRANULOCYTES ABSOLUTE 0.03 tho/cmm (0-0.03); IMMATURE GRANULOCYTES PERCENT 0.4 % (0-0.3); LYMPH ABSOLUTE COUNT 0.9 tho/cmm (0.8-4.5); MCH (MEAN CORPUSCULAR HGB) 32.9 pg (28.0-32.0); MCHC MEAN CORPUSCULAR HGB CONC 34.4 % (32.0-36.0); MCV (MEAN CELL VOLUME) 95.6 fl (82.0-96.0); MEAN PLATELET VOLUME 10.3 cmc (9.4-12.4); MONO % 9.2 % (0-12); MONOCYTE ABSOLUTE COUNT 0.7 tho/cmm (0.0-1.2); NEUTROPHIL ABSOLUTE COUNT 5.2 tho/cmm (1.6-8.0); NEUTROPHIL-AUTOMATED 5.2 tho/cmm (1.6-8.0); NEUTROPHILS % 73.9 % (40-80); PLATELET COUNT 145 tho/cmm (150-450); RED BLOOD COUNT 3.16 mil/cmm (4.00-5.20); RED CELL DISTRIBUTION WIDTH 17.7 % (12.4-16.4); WHITE BLOOD COUNT 7.1 tho/cmm (4.0-10.0)
[2017-03-11 18:37] LABS: INR 1.1 INR (0.9-1.1); PROTHROMBIN TIME 12.7 SECONDS (9.0-13.6)
[2017-03-11 18:48] LABS: ALBUMIN 3.7 g/dl (3.5-5.0); ALKALINE PHOSPHATASE 62 U/L (33-138); ALT/SGPT 26 U/L (12-78); ANION GAP 15 mmol/L (0-20); AST/SGOT 23 U/L (10-40); BILIRUBIN,TOTAL 0.6 mg/dl (0-1.5); BLOOD UREA NITROGEN 26 mg/dl (6-24); CALCIUM 9.5 mg/dl (8.5-10.5); CARBON DIOXIDE-VENOUS 23 mmol/L (22-32); CHLORIDE 97 mmol/l (96-110); CREATININE 1.63 mg/dl (0.50-1.10); GLUCOSE 120 mg/dL (70-110); POTASSIUM 3.2 mmol/L (3.7-5.1); SODIUM 132 mmol/L (135-145); eGFR VALUE FOR BLACK 33 mL/Min
[2017-03-11] MEDS ORDERED: BIOTIN5000 MCG (19:23)
[2017-03-11] MEDS ORDERED: VITAMIN D35000 UNI2 PO (19:23)
[2017-03-11] MEDS ORDERED: LINZESS145 MC1 PO (19:24)
[2017-03-11] MEDS ORDERED: ZOFRAN ODT4 MG PO (19:35)
[2017-03-11] MEDS ORDERED: MARINOL5 M1 PO (19:35)
[2017-03-11 19:53] LABS: URINE BILIRUBIN NEGATIVE (NEG); URINE BLOOD NEGATIVE (NEG); URINE GLUCOSE (UA) NEGATIVE (NEG); URINE KETONE NEGATIVE (NEG); URINE LEUKOCYTE ESTERASE NEGATIVE (NEG); URINE NITRITE NEGATIVE (NEG); URINE PROTEIN MODERATE (NEG); URINE SPECIFIC GRAVITY 1.005 (1.003-1.030)
[2017-03-11 19:54] LABS: URINE APPEARANCE CLEAR; URINE COLOR YELLOW
[2017-03-11 20:04] LABS: URINE RBC 0 /[HPF] (0-5); URINE WBC 0 /[HPF] (0-5)
[2017-03-11 20:05] LABS: URINE EPITHELIAL CELLS 0-1 /[HPF] (0-10)
[2017-04-04] MEDS ORDERED: SINEMET 25-1001 EAC1 PO (00:07)
[2017-04-04] MEDS ORDERED: NEURONTIN100 M1 PO (00:34)
[2017-04-04] MEDS ORDERED: KLONOPIN0.5 M1 PO (00:34)
[2017-04-07] MEDS ORDERED: CATAPRES0.1 M1 PO (09:48)
[2017-04-07] MEDS ORDERED: TEKTURNA PO (09:48)
[2017-04-08] MEDS ORDERED: ATIVAN2 MG/1 ML PO/SL (11:18)
[2017-04-08] MEDS ORDERED: ROXANOL PO/SL (11:19)
[2017-04-08] MEDS ORDERED: BYSTOLIC5 M1 PO (11:31)
== END 2017-03-11 19:52 ==
LOC: EDMED 17:42
PROVIDERS: Emergency Medicine
DX: M62.561 Muscle wasting and atrophy, not elsewhere classified, right lower leg (principal); E86.0 Dehydration; R11.0 Nausea; R63.0 Anorexia; I25.10 Atherosclerotic heart disease of native coronary artery without angina pectoris; I48.91 Unspecified atrial fibrillation; I10 Essential (primary) hypertension; E78.5 Hyperlipidemia, unspecified; G47.30 Sleep apnea, unspecified; Z95.5 Presence of coronary angioplasty implant and graft; Z95.1 Presence of aortocoronary bypass graft; Z90.710 Acquired absence of both cervix and uterus; Z79.82 Long term (current) use of aspirin; Z79.890 Hormone replacement therapy; Z79.899 Other long term (current) drug therapy; Z88.5 Allergy status to narcotic agent; Z88.8 Allergy status to other drugs, medicaments and biological substances
CPT/HCPCS: J2405; J7040